=== PATIENT | female | born 1980 | race Caucasian/White ===

== ENCOUNTER 2022-10-13 16:54 | Emergency (ER) | payer OTHER ==
[~2022-10-13] VITALS: Ht 170.2 cm; Wt 102.1 kg
[2022-10-13] MEDS ORDERED: FLUOXETINE HCL20 MG PO (17:37)
[2022-10-13] MEDS ORDERED: AMITRIPTYLINE100 MG PO (17:37)
[2022-10-13] MEDS ORDERED: PREGABALIN150 MG PO (17:38)
[2022-10-13] MEDS ORDERED: HYDROMORPHONE HC2 MG PO (17:38)
[2022-10-13] MEDS ORDERED: MONTELUKAST SOD10 MG PO (17:38)
[2022-10-13] MEDS ORDERED: CLONAZEPAM0.5 MG PO (17:38)
[2022-10-13] MEDS ORDERED: ELIQUIS5 MG PO (17:38)
== END 2022-10-14 11:29 | disposition left against medical advice (07) ==
LOC: ER 16:54
DX: M79.662 Pain in left lower leg (principal); R07.81 Pleurodynia; Z88.2 Allergy status to sulfonamides; Z88.1 Allergy status to other antibiotic agents; F41.8 Other specified anxiety disorders; Z86.72 Personal history of thrombophlebitis; I50.9 Heart failure, unspecified; Z86.16 Personal history of COVID-19; J45.909 Unspecified asthma, uncomplicated; Z86.711 Personal history of pulmonary embolism